=== PATIENT | female | born 1940 | race Caucasian/White ===

== ENCOUNTER 2017-07-29 11:58 | Emergency (ER) | payer OTHER ==
[~2017-07-29] VITALS: Ht 170.2 cm; Wt 91.7 kg
[2017-07-29 12:03] VITALS: Ht 170.2 cm; Wt 91.7 kg
[2017-07-29 12:23] VITALS: O2SAT 97
[2017-07-29 12:47] LABS: BASO % 0.7 %; BASO ABS # 0.05 K/uL (0-0.2); COMPLETE YES; EOS % 0.6 %; HEMATOCRIT 42.2 % (37-47); IG% 0.1 %; LYMPH % 17.8 %; LYMPH ABS # 1.23 K/uL (1.2-3.4); MEAN CORPUSCULAR HEMOGLOBIN 28.9 pg (25-34); MEAN CORPUSCULAR HGB CONC 33.2 g/dl (32-36); MEAN PLATELET VOLUME 11.5 fL (7.4-10.4); MONO % 5.9 %; NEUT % 74.9 %; PLATELET COUNT 291 K/uL (130-400); RED BLOOD COUNT 4.85 M/uL (4.2-5.4); WHITE BLOOD COUNT 6.91 K/uL (4.8-10.8)
[2017-07-29 13:06] LABS: ALT/SGPT 15 U/L (12-78); BLOOD UREA NITROGEN 12 mg/dl (7-18); BUN/CREATININE RATIO 15.9 (10-20); CALCIUM 8.9 mg/dl (8.5-10.1); CARBON DIOXIDE 27 mmol/L (21-32); CHLORIDE 103 mmol/L (98-107); CREATININE 0.75 mg/dl (0.60-1.20); GLUCOSE 120 mg/dl (70-99); MAGNESIUM 2.1 mg/dl (1.8-2.4); POTASSIUM 3.6 mmol/L (3.5-5.1); SODIUM 139 mmol/L (136-145)
[2017-07-29] MEDS ORDERED: HYDROCHLOROTHIAZIDE 25 MG TAB PO STA (13:07)
[2017-07-29 13:11] LABS: ALKALINE PHOSPHATASE 87 U/L (45-117); AST/SGOT 15 U/L (15-37)
[2017-07-29] MEDS ORDERED: LABETALOL HCL IV 5 MG/ML 20ML IV STA (13:33)
[2017-07-29] MEDS ORDERED: HYDR25TA4 PO (14:45)
[2017-07-29 15:17] VITALS: BP 180/91; PULSE 66; TEMP 36.6; O2SAT 97
--- NOTE | 2017-07-29 19:07 | EMERGENCY ROOM VISIT NOTE ---
History Report prepared by Tonya: Jacob Marks Under the Supervision of: Dr. Matthew Jain M.D. First contact with patient: 12:31 Chief Complaint: REFERRED BY DOCTOR Stated Complaint: HBP, VISION IS BAD History of Present Illness The patient is a 76 year old female who presents to the Emergency Room with complaints of hypertension that was discovered recently. Today, the patient went to an e commerce developer doctor because she is having trouble with her vision. Last week she began seeing flashes of light, and she also notes to have cataracts. She was seen by her eye doctor who referred her to an e commerce developer. Today the e commerce developer noticed her BP was high at 209/110. They then said her blood pressure needs to be under control before they can begin to treat her eyes. The patient is experiencing a lot of stress about her eye sight and her son who recently in a car accident. She denies any headache, fevers, chest pain, shortness of breath, abdominal pain, back pain , melena, hematochezia, abnormal urinary symptoms, or rashes. Source of History: patient Onset: recently Position: other (Global) Symptom Intensity: 209/110 Quality: other (HTN) Timing: waxes/wanes Associated Symptoms: No fevers, No chest pain, No SOB, No abdominal pain, No back pain, No melena, No hematochezia, No urinary symptoms, No rash Review of Systems See HPI for pertinent positives & negatives. A total of 10 systems reviewed and were otherwise negative. Past Medical & Surgical Medical Problems: (1) No Known Active Medical Problems Family History Patient reports no known family medical history. Social History Smoking Status: Never Smoker Smokeless Tobacco Use: No Alcohol Use: none Marital Status: single, Housing Status: lives with significant other Occupation Status: retired Current/Historical Medications Scheduled Hydrochlorothiazide (Hctz), 1 TAB PO DAILY Allergies Coded Allergies: No Known Allergies (Unverified , 07/29/17) Physical Exam Vital Signs Date Time Temp Pulse Resp B/P (MAP) Pulse Ox O2 Delivery O2 Flow Rate FiO2 07/29/17 15:17 36.6 66 18 180/91 97 07/29/17 14:41 66 18 199/96 97 Room Air 07/29/17 14:16 197/101 07/29/17 14:02 62 18 194/89 96 Room Air 07/29/17 13:36 203/89 07/29/17 13:10 71 18 192/104 96 Room Air 07/29/17 12:43 72 18 193/85 96 Room Air 07/29/17 12:23 75 07/29/17 12:23 97 Room Air 07/29/17 12:22 78 18 192/103 97 Room Air 07/29/17 12:03 36.6 77 18 180/119 97 Room Air Physical Exam Constitutional: Vital signs reviewed. Eyes: Pupils are equal round reactive to light. Conjunctiva are noninjected. ENT: Pharynx is clear without erythema or exudate. Mucous membranes are moist. Neck supple without meningeal signs. Respiratory: Clear to auscultation bilaterally. Breath sounds are equal bilaterally. Cardiovascular: Regular rate and rhythm. No rubs or gallops. GI: Soft, nondistended and nontender. Bowel sounds are present. Musculoskeletal: No peripheral edema. No lower extremity tenderness. Integumentary: No cyanosis. Neurological: The patient is awake and alert. No focal deficits. Psychiatric: Normal affect. Medical Decision & Procedures Laboratory Results 07/29/17 12:37 Red Blood Count 4.85, Mean Corpuscular Volume 87.0, Mean Corpuscular Hemoglobin 28.9, Mean Corpuscular Hemoglobin Concent 33.2, Mean Platelet Volume 11.5, Neutrophils (%) (Auto) 74.9, Lymphocytes (%) (Auto) 17.8, Monocytes (%) (Auto) 5.9, Eosinophils (%) (Auto) 0.6, Basophils (%) (Auto) 0.7, Neutrophils # (Auto) 5.17, Lymphocytes # (Auto) 1.23, Monocytes # (Auto) 0.41, Eosinophils # (Auto) 0.04, Basophils # (Auto) 0.05 07/29/17 12:37 Test 07/29/17 12:37 White Blood Count 6.91 K/uL (4.8-10.8) Red Blood Count 4.85 M/uL (4.2-5.4) Hemoglobin 14.0 g/dL (12.0-16.0) Hematocrit 42.2 % (37-47) Mean Corpuscular Volume 87.0 fL (80-100) Mean Corpuscular Hemoglobin 28.9 pg (25-34) Mean Corpuscular Hemoglobin Concent 33.2 g/dl (32-36) Platelet Count 291 K/uL (130-400) Mean Platelet Volume 11.5 fL (7.4-10.4) Neutrophils (%) (Auto) 74.9 % Lymphocytes (%) (Auto) 17.8 % Monocytes (%) (Auto) 5.9 % Eosinophils (%) (Auto) 0.6 % Basophils (%) (Auto) 0.7 % Neutrophils # (Auto) 5.17 K/uL (1.4-6.5) Lymphocytes # (Auto) 1.23 K/uL (1.2-3.4) Monocytes # (Auto) 0.41 K/uL (0.11-0.59) Eosinophils # (Auto) 0.04 K/uL (0-0.5) Basophils # (Auto) 0.05 K/uL (0-0.2) RDW Standard Deviation 40.2 fL (36.4-46.3) RDW Coefficient of Variation 12.5 % (11.5-14.5) Immature Granulocyte % (Auto) 0.1 % Immature Granulocyte # (Auto) 0.01 K/uL (0.00-0.02) Prothrombin Time 11.0 SECONDS (9.0-12.0) Prothromb Time International Ratio 1.0 (0.9-1.1) Activated Partial Thromboplast Time 27.1 SECONDS (21.0-31.0) Partial Thromboplastin Ratio 1.0 Anion Gap 9.0 mmol/L (3-11) Est Creatinine Clear Calc Drug Dose 73.0 ml/min Estimated GFR () 89.1 Estimated GFR (Non- 76.9 BUN/Creatinine Ratio 15.9 (10-20) Calcium Level 8.9 mg/dl (8.5-10.1) Magnesium Level 2.1 mg/dl (1.8-2.4) Total Bilirubin 0.4 mg/dl (0.2-1) Direct Bilirubin 0.1 mg/dl (0-0.2) Aspartate Amino Transf (AST/SGOT) 15 U/L (15-37) Alanine Aminotransferase (ALT/SGPT) 15 U/L (12-78) Alkaline Phosphatase 87 U/L (45-117) Troponin I < 0.015 ng/ml (0-0.045) Total Protein 6.9 gm/dl (6.4-8.2) Albumin 3.5 gm/dl (3.4-5.0) Laboratory results as reviewed by me. Medications Administered Medications (Trade) Dose Ordered Sig/Martin Route Start Time Stop Time Status Last Admin Dose Admin Hydrochlorothiazide (Hydrochlorothiazide Tab) 25 mg NOW STAT PO 07/29/17 13:07 07/29/17 13:09 DC 07/29/17 13:14 25 MG Labetalol HCl (Normodyne IV) 10 mg NOW STAT IV 07/29/17 13:33 07/29/17 13:35 DC 07/29/17 13:51 10 MG ECG Indication: other (Hypertension) Rate (beats per minute): 76 Rhythm: normal sinus Findings: no acute ischemic change, no ectopy ED Course 1231: The patient was evaluated in room B12B. A complete history and physical exam was performed. 1307: Ordered Hydrochlorothiazide 25 mg PO. 1332: I evaluated the patient at this time and discussed her results with her. Her blood pressure went up to 202/132. I will be ordering her some Labetalol. She also found a PCP and will be going to Dr. Astrid Marshall. 1333: Ordered Labetalol HCl 10 mg IV 1336: I spoke with Dr. Tenorio of Ophthalmology at this time. The patient has a central vein occlusion and bilateral cataracts without blood vessel bursting. 1417: The patient's blood pressure is now 194/101. 1440: Upon reevaluation, the patient's blood pressure was 199/96. She remains asymptomatic. I discussed tonight's findings with her. She will be discharged with an outpatient plan to gradually lower her blood pressure. I discussed this with the ED pharmacist. She verbalized agreement of the treatment plan. She was discharged home. Medical Decision this is a 76-year-old female presents with elevated blood pressure. I did perform a limited focused review of portions of the patient's old chart on the electronic medical record. The patient has had no prior visits to this hospital. I did evaluate the patient as noted above. The patient was sent here by her eye doctor because she had elevated blood pressure. She is otherwise asymptomatic. She has cataracts and central retinal vein occlusion in his scheduled to see another e commerce developer for treatment. She has no PCP and so was sent here for blood pressure control. IV access was established. The patient was placed on a continuous registered nurse cardiac. I did order and personally review the patient's 12-lead EKG as described above. I did order and review the patient's blood work as noted in the electronic medical record. Labs are unremarkable. I did treat the patient with hydrochlorothiazide 25 mg orally. She was also given labetalol 10 mg IV. Her blood pressure did improve. I did not feel aggressive lowering of her blood pressure was indicated at this time given the patient is asymptomatic. She has not seen a doctor for 10 years and so her blood pressure may have been high for very long time. I did not wish to cause any adverse effects from aggressively lowering her blood pressure. She was in agreement with this strategy. She was discharged with a prescription for hydrochlorothiazide. She was given a return instructions as outlined below. She did arrange to see one of the [facility] primary care physicians for follow up. Medication Reconcilliation Current Medication List: was personally reviewed by me Blood Pressure Screening Patient's blood pressure: Elevated blood pressure Blood pressure disposition: Referred to PCP Consults Time Called: 1330 Consulting Physician: Dr. Tenorio - Ophthalmology Returned Call: [phone] We discussed the patient's case. They told me that the patient has a central vein occlusion and bilateral cataracts. She does not have any blood vessel bursting. Impression Primary Impression: Hypertensive urgency Scribe Attestation The scribe's documentation has been prepared under my direct and personally reviewed by me in its entirety. I confirm that the note above accurately reflects all work, treatment, procedures, and medical decision making performed by me. Departure Information Dispostion Home / Self-Care (ERASED) Prescriptions Hydrochlorothiazide (HCTZ) 25 Mg Tab 1 TAB PO DAILY for 30 Days, #30 TAB 5 Refills Prov: Matthew Jain M.D. 07/29/17 Forms HOME CARE DOCUMENTATION FORM, IMPORTANT VISIT INFORMATION, WORK / SCHOOL INSTRUCTIONS Patient Instructions ED Hypertension [place], My [facility] Additional Instructions You have been examined and treated today on an emergency basis only. This is not a substitute for, or an effort to provide, complete comprehensive medical care. It is impossible to recognize and treat all injuries or illnesses in a single emergency department visit. It is therefore important that you follow up closely with your physician. Call as soon as possible for an appointment. Return for worsening symptoms or if you develop headaches, shortness of breath, chest pain, decreased urination, numbness or weakness on one side of your body, difficulty with your speech or gait, or any other concerning symptoms.
== END 2017-07-29 15:00 | disposition home or self-care (01) ==
LOC: C.EDB 12:00
DX: I16.0 Hypertensive urgency (principal); H53.9 Unspecified visual disturbance